=== PATIENT | female | born 1945 | race Two or more races ===

== ENCOUNTER 2019-05-12 06:28 | Outpatient (CLI) | payer OTHER | END 2019-05-12 06:35 | disposition home or self-care (01) | LOC: LAB 06:28 | DX: N60.11 Diffuse cystic mastopathy of right breast (principal); N60.12 Diffuse cystic mastopathy of left breast; E66.8 Other obesity; M89.8X8 Other specified disorders of bone, other site; R31.21 Asymptomatic microscopic hematuria; N84.0 Polyp of corpus uteri; E78.2 Mixed hyperlipidemia; R97.1 Elevated cancer antigen 125 [CA 125]; N94.6 Dysmenorrhea, unspecified; D39.8 Neoplasm of uncertain behavior of other specified female genital organs; D64.89 Other specified anemias; D50.8 Other iron deficiency anemias; E78.00 Pure hypercholesterolemia, unspecified; E11.9 Type 2 diabetes mellitus without complications; Z12.11 Encounter for screening for malignant neoplasm of colon; R10.84 Generalized abdominal pain; E21.4 Other specified disorders of parathyroid gland; E21.5 Disorder of parathyroid gland, unspecified; N30.00 Acute cystitis without hematuria; R30.0 Dysuria; E55.9 Vitamin D deficiency, unspecified; M81.0 Age-related osteoporosis without current pathological fracture ==

== ENCOUNTER 2019-05-12 07:16 | Outpatient (CLI) | payer OTHER | END 2019-05-12 07:21 | disposition home or self-care (01) | LOC: SONOGRAMA 07:16 | DX: N60.11 Diffuse cystic mastopathy of right breast (principal); N60.12 Diffuse cystic mastopathy of left breast; E66.9 Obesity, unspecified; M89.8X8 Other specified disorders of bone, other site; R31.21 Asymptomatic microscopic hematuria; N84.0 Polyp of corpus uteri; R10.2 Pelvic and perineal pain; R10.11 Right upper quadrant pain; N83.209 Unspecified ovarian cyst, unspecified side; N83.292 Other ovarian cyst, left side; N83.291 Other ovarian cyst, right side; M85.88 Other specified disorders of bone density and structure, other site; M81.0 Age-related osteoporosis without current pathological fracture ==